=== PATIENT | female | born 1970 | race Caucasian/White ===

== ENCOUNTER → 2018-11-28 | Outpatient (CLI) | payer MEDICAID | LOC: FIMAGING 18:46 | PROVIDERS: ATTEND Physician Assistant | DX: M25.851 Other specified joint disorders, right hip (principal); S73.191A Other sprain of right hip, initial encounter; M76.891 Other specified enthesopathies of right lower limb, excluding foot; D25.9 Leiomyoma of uterus, unspecified; N83.202 Unspecified ovarian cyst, left side; M51.36 Other intervertebral disc degeneration, lumbar region ==

== ENCOUNTER → 2019-02-19 | Outpatient (CLI) | payer MEDICAID | LOC: CIMAGING 08:07 ==